=== PATIENT | female | born 1995 | race Caucasian/White ===

== ENCOUNTER 2018-09-15 20:40 | Emergency (ER) | payer OTHER ==
[~2018-09-15] VITALS: Ht 162.6 cm; Wt 110.2 kg
[2018-09-15 20:48] VITALS: BP 137/58
--- NOTE | 2018-09-15 22:20 | NUR ---
PT TAKEN TO BED 8
--- NOTE | 2018-09-15 22:41 | NUR ---
Dr. Perea evaluating patient at bedside.
--- NOTE | 2018-09-15 23:06 | NUR ---
X-Ray at bedside.
[2018-09-15] MEDS ORDERED: IBUPROFEN 600 MG TAB PO ONE (23:20)
[2018-09-15 23:28] VITALS: BP 135/72
== END 2018-09-15 23:28 | disposition home or self-care (01) ==
LOC: MED 20:40
DX: S83.92XA Sprain of unspecified site of left knee, initial encounter (principal); W22.8XXA Striking against or struck by other objects, initial encounter; Y93.89 Activity, other specified; Y92.89 Other specified places as the place of occurrence of the external cause; Y99.8 Other external cause status
CPT/HCPCS: 73562; 81025; 99283